=== PATIENT | female | born 1950 | race Caucasian/White ===

== ENCOUNTER → 2018-02-19 01:05 | Outpatient (CLI) | payer MEDICARE, OTHER, SELFPAY ==
--- NOTE | 2018-02-19 11:25 | DI.REPORT_ITS ---
SYMPTOMS/DIAGNOSIS: SCREENING, Z12.31 MAMMOGRAM: Mammograms were interpreted according to the usual protocol including computer analysis with CAD system, tomosynthesis and C view imaging. The breasts are of moderate density with fairly symmetrical distribution of fibroglandular tissue. No dominant mass or clumped microcalcification is identified in either breast. The current examination is compared with previous examinations including June 2012 and allowing for differences in technique there has been no gross interval change in appearance in comparison with the previous studies. CONCLUSION: No specific evidence of malignancy at this time. Routine screening examinations are suggested at yearly intervals in this age group according to the ACS/ACR guidelines. Category I. Breast density Category B. MQSA ASSESSMENT OF FINDINGS: Negative. Category 1. Patient will receive a letter notifying them of these results. BI-RADS category B. There are scattered areas of fibroglandular density.
== END ==
PROVIDERS: PCP Nurse Practitioner; Visit Provider Nurse Practitioner Family
DX: Z12.31 Encounter for screening mammogram for malignant neoplasm of breast (principal)
CPT/HCPCS: 77063; 77067

== ENCOUNTER 2018-07-30 12:37 | Outpatient (REF) | payer MEDICARE, SELFPAY ==
[2018-07-30 22:27] LABS: ALT 45 U/L (12-78); AST 22 U/L (15-37); Albumin 4.1 g/dL (3.4-5.0); Alkaline Phosphatase 79 U/L (46-116); Anion Gap 11.4 mmol/L (3-11); BUN 21 mg/dL (7-18); CO2 25.6 mmol/L (21.0-32.0); CREATININE 0.75 mg/dL (0.55-1.02); Calcium 9.6 mg/dL (8.5-10.1); Chloride 104 mmol/L (98-107); Cholesterol 215 mg/dL (50-200); Glucose 94 mg/dL (70-100); HDL Cholesterol 92 mg/dL (40-60); LDL CHOLESTEROL 112 mg/dL (<100); Potassium 4.5 mmol/L (3.5-5.1); Sodium 141 mmol/L (136-145); Total Protein 7.5 g/dL (6.4-8.2); Triglyceride 66 mg/dL (30-150)
== END 2018-07-30 12:57 ==
LOC: NCHCN 12:37
PROVIDERS: PCP Nurse Practitioner; Visit Provider Family Medicine
DX: R03.0 Elevated blood-pressure reading, without diagnosis of hypertension (principal); Z13.6 Encounter for screening for cardiovascular disorders
CPT/HCPCS: 80053; 80061; 83721

== ENCOUNTER 2019-12-12 12:53 | Emergency (ER) | payer MEDICARE, OTHER, SELFPAY ==
[2019-12-12 12:58] VITALS: BP 169/88; PULSE 80; RESP 16; TEMP 36.6; O2SAT 96
--- NOTE | 2019-12-12 13:05 | ED.GENADUL_ITS ---
Discharge Plan Disposition Patient Disposition: HOME Condition: Good Discharge Details Chief Complaint: Nk/Back Pain Clinical Impression: Contusion Primary Care Provider: Caity Epstein ED Provider: Karen Kelly Home Meds and New Rx's Prescriptions: No Action No Known Home Meds RF: 0 Discharge Instructions Instructions: Contusion in Adults (ED) Additional Instructions: Encourage hydration. Please continue with Tylenol and/or ibuprofen as needed for discomfort. You may use [id number] patches such as Lidoderm patches to help with discomfort. If you develop change in your bowel or bladder habits, fevers or chills, weakness, sensation changes or other new/worsening symptom please seek care urgently once again. Otherwise, please follow-up with primary care in 2 weeks if not improving. Referrals: Caity Epstein [Primary Care Provider] - Discharge Data Discharge Date/Time-TO BE ENTERED AT DEPARTURE: 12/12/19 14:31 Medical Decision Making Patient is a pleasant 69-year-old female presenting today with chief complaint of coccyx and sacral pain. She reports 11 days ago she was helping some to to move a desk. Was walking backwards when she tripped on the steps that is behind her. She reported she did not fall backwards landing directly on her sacrum. She denies any numbness or tingling. No incontinence. No change in bowel or bladder habits. Denies any weakness in her lower extremities. Has not taken anything for her discomfort since the incident. Denies other injury the time of the incident. On exam, patient is resting comfortably. She is full range of motion of her back without discomfort. She has some minor midline tenderness particularly over the low sacrum and coccyx. There is no paresthesias, neuro exam is intact. No evidence of cauda equina. No pelvic instability, abdominal pain. Will give Tylenol, ibuprofen, Lidoderm patch and obtain x-rays of the affected area. FINDINGS: The bony structures are in anatomic alignment. No fracture is present. No radiopaque foreign body is identified. The joint spaces are well maintained. IMPRESSION: No evidence of acute bony abnormality Discussed findings with patient. She reports feeling much improved after Tylenol and ibuprofen and Lidoderm patch. She is able to move and get dressed unassisted. Advised that this is likely contamination. Encourage water intake. Encouraged patient avoid activities that cause increased discomfort. She was given strict return precautions. In particular, we discussed the symptoms of cauda equina and when to seek care urgently once again for this. She will follow-up with primary care in the next 1 to 2 weeks if pain continues. All of her questions or concerns were addressed and she is in agreement this plan. HPI General Mode of arrival: ambulatory . Date/Time Provider Initiated Documentation: 12/12/19 13:05 . Limitations to Documentation: no limitations . Information obtained by: patient and RN notes reviewed . History of Present Illness 69 year old F presents to the emergency department with the chief complaint of Sacral and coccyx discomfort, described as moderate, with intensity rated at 5. Quality is described as aching, and is localized to the back and buttocks. Patient reports no radiation. Patient started ex periencing this day(s) (11) and it has been constant. Immobilization improves symptom(s), Movement worsens symptoms . Patient notes no other symptoms.. Patient did receive the following treatments prior to arrival, NSAID (5 hours prior) Related Data Home Medications Medication Instructions Recorded Confirmed Unknown [No Known Home Meds] 08/14/17 12/12/19 Allergies Allergy/AdvReac Type Severity Reaction Status Date / Time XRAY DYE Allergy Severe VOMITING Uncoded 12/12/19 13:03 General Stated Complaint: Nausea/Vomit/Diar TANI: 3 Review of Systems Constitutional Constitutional: Reports as per HPI, Denies chills, Denies fatigue, Denies fever(s), Denies frequent falls and Denies headache(s) Eyes Eyes: Denies change in vision ENT Ears, Nose, Mouth, and Throat: Denies headache(s) Cardiovascular Cardiovascular: Denies chest pain, Denies dyspnea and Denies dyspnea on exertion Respiratory Respiratory: Denies cough, Denies dyspnea and Denies dyspnea on exertion Gastrointestinal Gastrointestinal: Denies abdominal pain, Denies change in bowel habits and Denies fecal incontinence Genitourinary Genitourinary: Reports as per HPI, Denies urinary incontinence and Denies urinary hesitancy Musculoskeletal Musculoskeletal: Reports as per HPI, Reports back pain, Denies muscle weakness, Denies numbness, Denies radiating pain into limb, Reports stiffness and Denies tingling Integumentary/Breasts Skin/Breast: Reports as per HPI and Denies rash Neurologic Neurologic: Reports as per HPI, Denies frequent falls, Denies headache(s), Denies localized weakness, Denies numbness, Denies radicular pain, Denies sensory deficit, Denies tingling and Denies paresthesias Endocrine Endocrine: Denies fatigue [facility] Surgical History Abdominal hysterectomy (~1992) with bladder repair Cholecyst[place] [facility] [place] Family History Mother Colon cancer at 34 Father Diabetes Sister Heart disease Grandmother Colon cancer MGM Daughter Pancreatitis, chronic Social History Smoking/Tobacco Use Status: Never Alcohol Intake: never Drug use: Never Do you feel safe at home: Yes Do you feel safe in your relationship?: Yes Exam Const General: cooperative, healthy appearing, comfortable, no acute distress, well developed and well groomed Nutritional Appearance: average body habitus and well nourished Orientation: alert and awake Eyes General: appearance normal, both eyes and all related structures Neck Neck: normal visual inspection, full ROM, no lymphadenopathy and no meningeal signs Resp Effort & Inspection: normal respiratory effort and able to speak in complete sentences Auscultation: clear to auscultation bilaterally, no rales, no rhonchi and no wheezes Cardio Rate: regular rate Rhythm: regular rhythm Heart Sounds: S1 normal and S2 normal GI Inspection: normal to inspection Palpation: nontender Back/Spine/Pelvis Thoracic/Lumbar Spine: thoracic and lumbar spine normal to inspection, thoraco- lumbar ROM normal, straight leg raise negative bilaterally, pain with thoraco- lumbar ROM, No paraspinal tenderness, No thoraco-lumbar ROM limited, No thoraco- lumbar spasm and No thoracic spinal tenderness Pelvis: no pain with anterior-posterior compression, no pain with lateral compression, no buttock ecchymosis, no buttock tenderness and no buttock swelling Sacroiliac joints: bilaterally nontender Sacrum: no ecchymosis, no erythema, no swelling and tenderness Coccyx: no swelling and tenderness on direct palpation Skin General skin exam: no rashes or lesions noted Neuro General: patient alert and patient awake Cognition: normal cognition Speech: speech normal Gait: normal gait Motor: muscle tone normal throughout, strength 5/5 throughout, no movement abnormalities noted and no fasciculations Sensory Exam: no sensory deficits noted (no saddle paresthesias) DTR's: Rt Patellar: 2+, Lt Patellar: 2+, Rt Ankle: 2+ and Lt Ankle: 2+ Extrem General: normal to inspection, full ROM, capillary refill normal, no joint enlargement, no pedal edema, no calf tenderness and normal gait Psych Appearance: grossly normal and well kempt Mental Status: mental status grossly normal Speech and Movement: speech and movement normal Course Vital Signs Vital signs: Vital Signs Temperature 36.6 C 12/12/19 12:58 Pulse 80 12/12/19 12:58 Respiratory Rate 16 12/12/19 12:58 Blood Pressure 169/88 H 12/12/19 12:58 Pulse Oximetry 96 12/12/19 12:58 Temperature 36.6 C 12/12/19 12:58 Pulse 80 12/12/19 12:58 Respiratory Rate 16 12/12/19 12:58 Respiratory Effort Non-Labored 12/12/19 13:02 Blood Pressure 169/88 H 12/12/19 12:58 Blood Pressure Position Sitting 12/12/19 12:58 Pulse Oximetry 96 12/12/19 12:58 Oxygen Delivery Method Room Air 12/12/19 12:58 Oxygen Flow Rate 0 12/12/19 12:58 Pain Level 5 12/12/19 13:04
--- NOTE | 2019-12-12 13:15 | DI.RAD_ITS ---
EXAM: XR SACRUM COCCYX CLINICAL HISTORY: fall 11 days ago, coccyx pain. TECHNIQUE: 2D digital imaging was performed. COMPARISON: No exams were available for comparison FINDINGS: BONES: No acute fracture is present. No bony destructive lesion is seen. JOINTS: The SI joints show mild degenerative changes but appear intact. Facet degenerative changes a re also present in the lower lumbar spine. SOFT TISSUE: Normal. IMPRESSION: Unremarkable radiographs of the sacrum and coccyx. DATA REPOSITORY: RADIATION DOSE DELIVERED:
[2019-12-12] MEDS: Acetaminophen 500 MG TAB 1000 MG PO (13:30)
[2019-12-12] MEDS: Lidocaine 5% Patch 1 PATCH TP (13:30)
[2019-12-12] MEDS: Ibuprofen 600 MG TAB PO (13:30)
--- NOTE | 2019-12-12 14:09 | DI.VRAD_ITS ---
PROCEDURE INFORMATION: Exam: XR Sacrum and Coccyx, 2 or More Views Exam date and time: 12/12/2019 1:54 PM Age: 69 years old Clinical indication: Pain in coccyx area; Patient HX: Fall 11 days ago, persistent pain TECHNIQUE: Imaging protocol: XR of the sacrum and coccyx, 2 or more views. COMPARISON: CT ABD PELVIS WITH CONTRAST 08/14/2017 9:32 AM FINDINGS: The bony structures are in anatomic alignment. No fracture is present. No radiopaque foreign body is identified. The joint spaces are well maintained. IMPRESSION: No evidence of acute bony abnormality. Dictated and Authenticated by: Star Hong MD. Ordering:LUCY Jones MD
[2019-12-12 14:30] VITALS: BP 160/88; PULSE 80; RESP 16; TEMP 36.6; O2SAT 96
== END 2019-12-12 14:31 | disposition home or self-care (01) ==
LOC: ER 14:54
PROVIDERS: Emergency Provider Physician Assistant; PCP Nurse Practitioner
DX: S30.0XXA Contusion of lower back and pelvis, initial encounter (principal); W19.XXXA Unspecified fall, initial encounter
CPT/HCPCS: 99283; 72220

== ENCOUNTER 2020-04-25 01:17 | Outpatient (CLI) | payer MEDICARE, OTHER, SELFPAY ==
--- NOTE | 2020-04-25 13:22 | DI.MAMMO_ITS ---
EXAM: MAMMO SCREENING CLINICAL HISTORY: SCREENING,Z12,31 TECHNIQUE: Mammograms were interpreted according to the usual protocol including computer analysis w [employer] CAD system, tomosynthesis and C-view imaging. COMPARISON: FINDINGS: The breasts are of moderate density with fairly symmetrical distribution of fibroglandular tissue. N o dominant mass or clumped microcalcification is identified in either breast. The current examinatio n is compared with previous examination of January 2018 and there is increased prominence of areas of asymmetric density projected in the right breast posteriorly on the MLO view and centrally and latera lly on the CC view, spot compression views of these areas are requested to rule out new right breast mass. No other significant change seen. IMPRESSION: Additional mammographic views of the right breast requested as described above to include CC and MLO spot compression views. Breast ultrasound may be indicated as well depending on the results of the a dditional mammographic views. BI-RADS Category 0 - Assessment Incomplete: Need additional imaging evaluation Breast Density - Category B - Scattered areas of fibroglandular density
== END 2020-04-25 01:37 ==
PROVIDERS: PCP Family Medicine; Visit Provider Family Medicine
DX: Z12.31 Encounter for screening mammogram for malignant neoplasm of breast (principal); R92.8 Other abnormal and inconclusive findings on diagnostic imaging of breast
CPT/HCPCS: 77063; 77067

== ENCOUNTER 2020-04-28 03:42 | Outpatient (CLI) | payer MEDICARE, OTHER, SELFPAY ==
--- NOTE | 2020-04-28 | DI.US_ITS ---
EXAM: MG MAMMO SCREEN CALL BACK UNI CLINICAL HISTORY: F/U MAMMO,INCREASED ASYMMETRIC DENSITY TECHNIQUE: Mammograms were interpreted according to the usual protocol including computer analysis w [employer] CAD system, tomosynthesis and C-view imaging. COMPARISON: FINDINGS: Additional mammographic views of the right breast and right breast ultrasound are interpreted in conj unction. These examinations were obtained to evaluate questionable areas of asymmetric density seen on recent mammogram in the upper outer quadrant of the right breast. Spot compression views fail to show a discrete mass. Breast ultrasound shows couple of tiny cysts in the 10 o'clock position contai donna some debris or proteinaceous material with no internal vascularity and smooth moles, these measu re about 2 millimeters and 4 millimeters in diameter respectively. No suspicious mass identified. IMPRESSION: No specific evidence of malignancy at this time. Follow-up unilateral right breast mammogram recomme nded in 6 months. BI-RADS Category 3 - 6 month - Probably Benign Finding: Recommend follow-up mammography in 6 months Breast Density - Category B - Scattered areas of fibroglandular density
--- NOTE | 2020-04-28 09:40 | DI.MAMMO_ITS ---
EXAM: MG MAMMO SCREEN CALL BACK UNI CLINICAL HISTORY: F/U MAMMO,INCREASED ASYMMETRIC DENSITY TECHNIQUE: Mammograms were interpreted according to the usual protocol including computer analysis w [employer] CAD system, tomosynthesis and C-view imaging. COMPARISON: FINDINGS: Additional mammographic views of the right breast and right breast ultrasound are interpreted in conj unction. These examinations were obtained to evaluate questionable areas of asymmetric density seen on recent mammogram in the upper outer quadrant of the right breast. Spot compression views fail to show a discrete mass. Breast ultrasound shows couple of tiny cysts in the 10 o'clock position contai donna some debris or proteinaceous material with no internal vascularity and smooth moles, these measu re about 2 millimeters and 4 millimeters in diameter respectively. No suspicious mass identified. IMPRESSION: No specific evidence of malignancy at this time. Follow-up unilateral right breast mammogram recomme nded in 6 months. BI-RADS Category 3 - 6 month - Probably Benign Finding: Recommend follow-up mammography in 6 months Breast Density - Category B - Scattered areas of fibroglandular density
== END 2020-04-28 04:02 ==
PROVIDERS: PCP Family Medicine; Visit Provider Family Medicine
DX: R92.8 Other abnormal and inconclusive findings on diagnostic imaging of breast (principal)
CPT/HCPCS: 76642; 77063; 77067

== ENCOUNTER 2020-10-12 01:50 | Outpatient (CLI) | payer MEDICARE, OTHER, SELFPAY ==
--- NOTE | 2020-10-12 | DI.US_ITS ---
EXAM: US BREAST RT COMPLETE CLINICAL HISTORY: F/U ABNL MAMMO, 6 MONTH FOLLOW UP. TECHNIQUE: COMPLETE ULTRASOUND EXAMINATION OF THE RIGHT BREAST WAS PERFORMED INCLUDING ALL 4 QUADRAN TS WELL THE RETROAREOLAR REGION. THE RIGHT AXILLA WAS ALSO SCANNED. COMPARISON: Prior mammograms were reviewed. Prior ultrasound examination March 2020 was also revie wed. FINDINGS: At the 3 o'clock position there are 2 microcysts. One is round and measures 3.5 x 3.0. Millimeters. The other is slightly above long, measuring 7 x 3 millimeters. One of these corresponds to the fin ding on the mammogram at this location. At the 10 o'clock position there is a small benign-appearing lymph node which corresponds to a nodule which is been present since at least 2012 on the mammograms. There are no other focal findings in all 4 quadrants nor in the retroareolar region. No significant ultrasound finding to correspond to area of possible concern described on the prior ma mmogram. Scanning of the axilla reveals small benign-appearing lymph nodes IMPRESSION: Benign right breast ultrasound findings. No solid lesions. Appropriate follow-up is to keep this patient yearly mammogram schedule, this implying the next [facility] mammogram would be in March or April 2021, with earlier imaging if a self detected breast c hanges noted.. BI-RADS Category 2 - Benign Findings Breast Density - Category B - Scattered areas of fibroglandular density Breast density Category C or D implies that the patient has dense breast tissue. Dense breast tissue can make it harder to find cancer on a mammogram. Dense breast tissue is also associated with an incr eased risk of breast cancer. This information about the result of the mammogram report was provided to the patient to raise their awareness. Use this report when you speak with the patient about their risks for breast cancer, which includes their family history. At that time, you may recommend additional screening tests (Ultrasoun d or MRI) as these tests may add significant information. A negative radiographic report should not delay biopsy if a dominant or clinically suspicious mass is present. Up to ten percent of cancers are not identified on mammography. A negative report may reinforce clinical impression. Adenosis and dense breasts may obscure an underlying neoplasm. False positive reports average 6 to 10%. Patient will receive a letter notifying them of these results.
--- NOTE | 2020-10-12 | DI.MAMMO_ITS ---
EXAM: MG MAMMO DIAGNOSTIC UNI-RIGHT CLINICAL HISTORY: DIAGNOSTIC,F/U ABNL MAMMO, 6 MONTH FOLLOW UP. TECHNIQUE: Both CC and MLO views of the right breast were performed using tomosynthesis technique. C AD. COMPARISON: Prior mammograms dating back to 2012, the most recent being March 2020. Prior ultrasou nd March 2020 was reviewed. FINDINGS: There has been no significant change in appearance and distribution of fibroglandular tissue. Small nodular density in the upper outer quadrant is unchanged from 2013 and shown to be benign lymph node on ultrasound performed today following this mammogram. In the medial aspect of the breast there is a well-defined oval noncalcified nodule which may be slig htly increasing in size from prior years. This is shown to be a microcyst on ultrasound today. Previously described finding centrally is less concerning on today's mammogram. Indeed, there are no ultrasound findings to correspond to this on today's complete breast ultrasound. No new malignant-appearing microcalcification groups. No new architectural distortion or skin thicken ing-traction. IMPRESSION: Benign right breast findings. Please also refer to today's breast ultrasound report. Appropriate follow-up is to keep this patient yearly mammogram schedule playing the next bilateral ma mmogram would be in 6 months, with earlier imaging if a self detected breast changes noted.. BI-RADS Category 2 - Benign Findings Breast Density - Category B - Scattered areas of fibroglandular density Breast density Category C or D implies that the patient has dense breast tissue. Dense breast tissue can make it harder to find cancer on a mammogram. Dense breast tissue is also associated with an incr eased risk of breast cancer. This information about the result of the mammogram report was provided to the patient to raise their awareness. Use this report when you speak with the patient about their risks for breast cancer, which includes their family history. At that time, you may recommend additional screening tests (Ultrasoun d or MRI) as these tests may add significant information. A negative radiographic report should not delay biopsy if a dominant or clinically suspicious mass is present. Up to ten percent of cancers are not identified on mammography. A negative report may reinforce clinical impression. Adenosis and dense breasts may obscure an underlying neoplasm. False positive reports average 6 to 10%. Patient will receive a letter notifying them of these results.
== END 2020-10-12 02:10 ==
PROVIDERS: PCP Family Medicine; Visit Provider Family Medicine
DX: Z12.31 Encounter for screening mammogram for malignant neoplasm of breast (principal); R92.8 Other abnormal and inconclusive findings on diagnostic imaging of breast; N60.11 Diffuse cystic mastopathy of right breast; R59.0 Localized enlarged lymph nodes
CPT/HCPCS: 76642; 77061; 77065; G0279

== ENCOUNTER 2020-11-16 12:26 | Outpatient (REF) | payer MEDICARE, OTHER, SELFPAY ==
[2020-11-16 21:11] LABS: ALT 65 U/L (14-59); AST 32 U/L (15-37); Albumin 3.8 g/dL (3.4-5.0); Alkaline Phosphatase 91 U/L (46-116); Anion Gap 8.3 mmol/L (3-11); BUN 15 mg/dL (7-18); Bilirubin, Total 0.9 mg/dL (0.2-1.0); CO2 27.7 mmol/L (21.0-32.0); CREATININE 0.8 mg/dL (0.55-1.02); Calcium 9.2 mg/dL (8.5-10.1); Calculated LDL 82 mg/dL (<100); Chloride 106 mmol/L (98-107); Cholesterol 180 mg/dL (<200); Glucose 99 mg/dL (74-106); HDL Cholesterol 63 mg/dL (40-60); Potassium 4.2 mmol/L (3.5-5.1); Sodium 142 mmol/L (136-145); Total Protein 6.9 g/dL (6.4-8.2); Triglyceride 178 mg/dL (<150)
[2020-11-20 10:19] LABS: Hepatitis C Ab w Rflx HCV PCR Negative (Negative)
== END 2020-11-16 12:27 | disposition home or self-care (01) ==
LOC: NCHCN 12:26
PROVIDERS: PCP Family Medicine; Visit Provider Family Medicine
DX: R03.0 Elevated blood-pressure reading, without diagnosis of hypertension (principal); Z11.59 Encounter for screening for other viral diseases; E78.1 Pure hyperglyceridemia
CPT/HCPCS: 80053; 80061; 86803

== ENCOUNTER 2021-01-29 14:28 | Outpatient (CLI) | payer MEDICARE, OTHER, SELFPAY ==
--- NOTE | 2021-01-29 14:00 | DI.RAD_ITS ---
Exam(s) XR HIP RT COMPLETE AP PELVIS EXAM: XR HIP RT COMPLETE AP PELVIS CLINICAL HISTORY: right hip pain. TECHNIQUE: 2D digital imaging was performed. COMPARISON: No exams were available for comparison FINDINGS: There is no evidence of pelvic nor hip fracture. However, there are moderate osteoarthritic degenera tive changes right hip joint evident. Left hip appears unremarkable. No osseous. Sacroiliac joints appear unremarkable. IMPRESSION: Right hip degenerative changes. No fractures evident. DATA REPOSITORY: RADIATION DOSE DELIVERED:
== END 2021-01-29 14:29 | disposition home or self-care (01) ==
LOC: DIORS 14:28
PROVIDERS: PCP Family Medicine; Referring Provider Family Medicine; Visit Provider Student in an Organized Health Care Education/Training Program
DX: M25.551 Pain in right hip (principal); M16.11 Unilateral primary osteoarthritis, right hip
CPT/HCPCS: 99213; 73502

== ENCOUNTER 2021-04-17 02:29 | Outpatient (CLI) | payer MEDICARE, OTHER, SELFPAY ==
[2021-04-17 19:46] LABS: COVID-19 RT-PCR UVMMC Result Negative (Negative)
== END 2021-04-17 02:30 | disposition home or self-care (01) ==
LOC: LBO 02:29
PROVIDERS: PCP Family Medicine; Visit Provider Nurse Practitioner Family
DX: Z20.822 Contact with and (suspected) exposure to COVID-19 (principal)
CPT/HCPCS: U0003; U0005

== ENCOUNTER → 2021-04-19 09:25 | Outpatient (BNVA) | payer MEDICARE, OTHER, SELFPAY | PROVIDERS: PCP Family Medicine; Referring Provider Family Medicine; Visit Provider Physical Therapy Assistant | DX: Z12.11 Encounter for screening for malignant neoplasm of colon (principal); Z80.41 Family history of malignant neoplasm of ovary ==

== ENCOUNTER 2021-04-27 01:24 | Outpatient (CLI) | payer MEDICARE, SELFPAY ==
[2021-04-27 10:41] LABS: Source Nasal/Nares
[2021-04-27 14:31] LABS: COVID-19 PCR Negative (Negative)
== END 2021-04-27 01:25 | disposition home or self-care (01) ==
LOC: LBO 01:25
PROVIDERS: PCP Family Medicine; Visit Provider Surgery
DX: Z20.822 Contact with and (suspected) exposure to COVID-19 (principal)
CPT/HCPCS: 87635

== ENCOUNTER 2021-04-30 07:09 | Day surgery (SDC) | payer MEDICARE, SELFPAY ==
--- NOTE | 2021-04-29 08:52 | ANES.PREOP_ITS ---
General Info Date of Service Date Performed: 04/30/21 Height: 5 ft 1 in Weight: 64.637 kg Body Mass Index (BMI): 26.9 Surgical Procedure: Operation Date: 04/30/21 08:20 Proposed Procedures Side Surgeon p Colonoscopy Savi Chester MD Meds Allergies and Home Medications Allergies Allergy/AdvReac Type Severity Reaction Status Date / Time XRAY DYE Allergy Severe VOMITING Uncoded 04/30/21 07:25 Home Medication Medication Instructions Recorded clobetasol 0.05 % topical cream 1 applic TOPICAL BID 11/28/20 acetaminophen 325 mg capsule 325 mg PO ONCE PRN 04/19/21 bisacodyl 5 mg tablet,delayed 5 mg PO ONCE #4 tab 04/19/21 release ibuprofen 200 mg tablet 200 mg PO Q6H PRN 04/19/21 polyethylene glycol 3350 17 17 g PO ONCE #238 g 04/19/21 gram/dose oral powder Current Visit Medications: Current Medications Generic Name Dose Route Start Last Admin Trade Name Freq PRN Reason Stop Dose Admin Ringer's Solution 1,000 mls @ 80 mls/hr 04/30/21 06:00 IV 05/27/21 23:59 INFUSION RADHA IV Miscellaneous Supplies 1 each 04/30/21 06:00 Iv Access IV 05/27/21 23:59 DIRECTED RADHA Sodium Chloride 0 ml 04/30/21 06:00 Normal Saline Flush 10 Ml Syr IV 05/27/21 23:59 PRN PRN Sodium Chloride 0 ml 04/30/21 06:00 Normal Saline 10 Ml Vial IJ 05/27/21 23:59 DIRECTED PRN Sterile Water 0 ml 04/30/21 06:00 Water,Injection,Sterile 10 Ml Vial IJ 05/27/21 23:59 DIRECTED PRN PFSH Active Problems Active Problems: Problem Status Onset Code Screening for colon cancer Z12.11 Family history of colon cancer Z80.0 Herpes simplex B00.9 Atopic dermatitis L20.9 Elevated blood pressure reading R03.0 Degenerative joint disease of right hip M16.11 Medical History Medical History Degenerative joint disease of right hip Hepatic cyst History of nephrolithiasis Surgical History Surgical History Abdominal hysterectomy (~1992) with bladder repair Cholecystectomy 06/2017 at [facility] [place] History of ear surgery Hx of shoulder surgery Tobacco Smoking/Tobacco Use Status: Never Alcohol Alcohol Intake: current Alcohol intake frequency: a few times a month Alcohol type: other Substance Use Substance use: Never Substance use type: does not use Vital Signs and Lab Results Vital Signs Most Recent Vital Signs in EMR: Temp Pulse Resp BP Pulse Ox 36.3 C L 74 16 151/88 H 97 04/30/21 07:21 04/30/21 07:21 04/30/21 07:21 04/30/21 07:21 04/30/21 07:21 Lab Results Blood Type / Crossmatch: No Data to Display Complete Blood Count: No Data to Display Complete Metabolic Panel: No Data to Display Liver Function Panel: No Data to Display Coagulation Panel: No Data to Display Cardiac Panel: No Data to Display Arterial Blood Gas: No Data to Display Venous Blood Gas: No Data to Display Pancreas Panel: No Data to Display Thyroid Panel: No Data to Display Infectious Disease: Coronavirus (COVID-19)(PCR) Negative (Negative) 04/27/21 08:49 04/27/21 Coronavirus 2019 Source Nasal/Nares 04/27/21 08:49 04/27/21 Blood Cultures: No Data to Display Toxicology Panel: No Data to Display Anesthesia Assessment and Plan Anesthesia History Personal History: No History of Anesthesia Complications Family History: No Family History of Anesthesia Complications Exercise Tolerance Exercise Tolerance: Metabolic Equivalents>4 Cardiac & Pulmonary Exam Cardiac Exam: Normal S1/S2 Heart Sounds Pulmonary Exam: Clear Bilateral Breath Sounds Airway Exam Known Difficult Airway: No Mallampati Class: 2 Mouth Opening: Normal (> 3cm) Thyromental Distance: Greater than 3 cm Neck Range of Motion: Full ROM Neck Circumference: Normal Teeth Condition: Normal Dentition ASA Classification ASA Score: ASA 2 Emergency Case?: No NPO Status NPO Status: NPO Clears >2 hours, Solids >8 hours Anesthesia Plan Resuscitation Status: Full Code Anesthesia Technique: General Anesthesia Airway Planned: Natural Airway Monitors Used: Standard Monitors Preoperative Comments:: 71 yo female for screening colo. Sig PMHx: hepatic cyst, hysterectomy, cholecystectomy. never smoker, no EtOH.
--- NOTE | 2021-04-30 06:39 | COLE_ITS ---
Colonoscopy Report Date of procedure: 04/30/21 Pre-op diagnosis general: Colon Cancer Screening Post-op diagnosis procedure note: same (and internal hemorrhoids) Procedure: Colonoscopy Surgeon: Savi Chester Anesthesia Type: General:No Airway (Kb Cardoso CRNA) Estimated blood loss (mL): 0 Pathology: none sent Complications: None Disposition: same day Indications: The patient is here for Colonoscopy pre-op. Her last screening was in 2010 and was unremarkable. She denies a family history of colon cancer. She reports her mother had ovarian cancer which spread to her colon. She has not had any bowel habit changes. -Discussed colonoscopy bowel prep as well as the procedure. Discussed possible complications of the procedure to include bleeding, pain, perforation, missed small lesion/polyp, sore throat, aspiration and adverse reaction to the medications. Questions were answered to patient?s satisfaction. No guarantees were implied or given. Prep: Miralax/Dulcolax Procedure Start Time: 08:14 Procedure End Time: 08:34 Retraction Time: 9 minutes Findings: Grade 1 and 2 internal hemorrhoids Procedure Description: After informed consent was obtained the patient was taken to the procedure room and placed in a left decubitous position. Monitors were applied and a time out was done. The patients name, date of , procedure, allergies to medications and metal in their body was reviewed. The patient was then sedated. Once sedated and comfortable a rectal exam was done. External exam was normal. Internal exam revealed a normal sphincter tone and no palpable masses. The scope was then introduced and retro-flexed. Grade 1 and 2 internal hemorrhoids were identified. No polyps or masses were identified on retro- flexion. The scope was then advanced to the cecum without difficulty. The ileocecal vlave and appendiceal orifice were identified. The prep was adequate. The scope was then slowly retracted over 9 minutes back into the rectum. There were no polyps and no diverticulosis noted. The scope was removed and the patient was woken up and taken back to Same day surgery in stable condition. The patient tolerated the procedure well and there were no immediate complications. Follow up: The patient should follow up as needed if they develop changes in bowel habits or other new gastrointestinal complaints.
--- NOTE | 2021-04-30 06:40 | W.PM.DSUDISC ---
Discharge Plan Disposition Patient Disposition: HOME Condition: Good Discharge Details Reason For Visit: Colonoscopy Attending Provider: Savi Chester Primary Care Provider: Ruba Cabrera Home Meds and New Rx's Prescriptions: Continued acetaminophen [Tylenol] 325 mg capsule 325 mg PO ONCE PRNRF: 0 ibuprofen [Advil] 200 mg tablet 200 mg PO Q6H PRNRF: 0 clobetasol 0.05 % cream 1 applic topical BID RF: 0 Discontinued bisacodyl [Dulcolax (bisacodyl)] 5 mg tablet,delayed release (DR/EC) 5 mg PO ONCE Qty: 4 RF: 0 polyethylene glycol 3350 17 gram/dose powder 17 g PO ONCE Qty: 238 RF: 0 Discharge Instructions Instructions: Hemorrhoids (DC) Additional Instructions: Findings: internal hemorrhoids Follow up: as needed Please call if you develop: fevers >101.5 Nausea or Vomiting Abdominal pain that is not transient Rectal bleeding that is more then a tbsp A hard abdomen and inability to pass gas DAY SURGERY UNIT POST ENDOSCOPY INSTRUCTIONS Instructions for everyone who is given Anesthesia: For your safety, please do the following for the next 24 Hours: a. Do not drive or operate dangerous equipment b. Do not drink alcohol beverages or use any recreational drugs for the first 24 hours or while taking pain medications. The medications in your body may have a reaction that can be dangerous. c. Do not make any important decisions or sign any important papers 1. Generally there are no restrictions on your activity after a day or so has gone by, but you may feel a bit fatigued for a few days. 2. After you arrive home you may have a light meal and return to a normal diet as you can tolerate it without feeling sick to your stomach. 3. After surgery, you may feel pain or discomfort. This should be only transient, but if it persists please contact your doctor. 4. If there are any questions regarding the findings of your procedure, please feel free to contact your doctor. 6. If you are unable to contact your doctor with a problem, contact the hospital at [phone]. 7. Continue all your regular medications unless directed otherwise. I understand the above instructions and have no questions. Signature of Patient or Responsible Adult Escort Date/Time Name of Responsible Adult Escort Signature of Nurse Date/Time Activity:: Activity as Tolerated Diet:: high fiber Discharge Orders Discharge Orders: Discharge Order (Routine); Ordered 04/30/21 Ordered By: Savi Chester
[2021-04-30 07:21] VITALS: BP 151/88; PULSE 74; RESP 16; TEMP 36.3; O2SAT 97
[2021-04-30 07:26] VITALS: BMI 26.9
[2021-04-30] MEDS: Lactated Ringers 1,000 ML 80 ML IV (07:41)
[2021-04-30 08:44] VITALS: BP 122/65; PULSE 68; RESP 18; TEMP 36.2; O2SAT 97
--- NOTE | 2021-04-30 08:48 | W.ANESPOSTOP ---
Postoperative Evaluation Date, Time and Location Date Performed: 04/30/21 Time Performed: 08:48 Patient Location: Day Surgery Unit Vital Signs Most Recent Imported Vital Signs: Most Recent Vital Signs Temp Pulse Resp BP Pulse Ox 36.2 C L 68 18 122/65 97 04/30/21 08:44 04/30/21 08:44 04/30/21 08:44 04/30/21 08:44 04/30/21 08:44 Pain Score Most Recent Pain Score: Most Recent Pain Score Pain Level 0 04/30/21 08:44 Assessment Mental Status: Awake (Alert & Oriented to Patient Baseline) Airway and Respiratory Function: Patent airway with normal (patient baseline) respiratory exam Cardiovascular Function: Hemodynamically Stable Hydration Status: Adequately Hydrated Nausea & Vomiting: No Nausea or Vomiting Pain: Pt. Denies Any Pain Peripheral Nerve Block: Patient did not receive a nerve block
[2021-04-30 09:20] VITALS: BP 156/95; PULSE 60; RESP 16; TEMP 36.3; O2SAT 98
== END 2021-04-30 09:53 | disposition home or self-care (01) ==
PROVIDERS: PCP Family Medicine; Visit Provider Surgery
PROC: 0DJD8ZZ Inspection of Lower Intestinal Tract, Via Natural or Artificial Opening Endoscopic (ICD-10-PCS; CPT 45378; principal; 2021-04-30 08:15)
DX: Z12.11 Encounter for screening for malignant neoplasm of colon (principal); K64.8 Other hemorrhoids
CPT/HCPCS: G0121; J2001

== ENCOUNTER 2021-07-13 01:56 | Outpatient (CLI) | payer MEDICARE, SELFPAY ==
--- NOTE | 2021-07-13 08:42 | DI.MAMMO_ITS ---
Exam(s) MAMMO SCREENING EXAM: MAMMO SCREENING CLINICAL HISTORY: SCREENING, Z12.31. TECHNIQUE: Bilateral full field digital CC and MLO mammographic images were obtained with 3D tomosyn thesis and utilizing computer aided detection (CAD). COMPARISON: Prior mammograms dating back to 2012, the most recent being March 2020 and diagnostic right breast mammogram performed September 2020. Recent ultrasound examinations were reviewed FINDINGS: There has been no significant change in the appearance and distribution of the fibroglandular tissue. Scattered benign microcalcifications are again noted in both breasts. There is an unchanged benign-appearing nodule laterally in the left breast, unchanged from 2013 and a small benign-appearing nodule medially in the right breast which is also unchanged from prior studie s. Recently described nodular density posteriorly in the right breast is less evident on the present agata dy. Oval nodular density seen on the 3D MLO view of the right breast located 10 cm from the nipple i s unchanged There is no significant architectural distortion nor skin thickening-retraction. IMPRESSION: Stable benign findings. No radiographic evidence of malignancy. BI-RADS Category 2 - Benign Findings Breast Density - Category B - Scattered areas of fibroglandular density Breast density Category C or D implies that the patient has dense breast tissue. Dense breast tissue can make it harder to find cancer on a mammogram. Dense breast tissue is also associated with an incr eased risk of breast cancer. This information about the result of the mammogram report was provided to the patient to raise their awareness. Use this report when you speak with the patient about their risks for breast cancer, which includes their family history. At that time, you may recommend additional screening tests (Ultrasoun d or MRI) as these tests may add significant information. A negative radiographic report should not delay biopsy if a dominant or clinically suspicious mass is present. Up to ten percent of cancers are not identified on mammography. A negative report may reinforce clinical impression. Adenosis and dense breasts may obscure an underlying neoplasm. False positive reports average 6 to 10%. Patient will receive a letter notifying them of these results.
== END 2021-07-13 02:16 ==
PROVIDERS: PCP Family Medicine; Visit Provider Family Medicine
DX: Z12.31 Encounter for screening mammogram for malignant neoplasm of breast (principal); R91.1 Solitary pulmonary nodule
CPT/HCPCS: 77063; 77067

== ENCOUNTER 2021-11-06 09:10 | Outpatient (REF) | payer MEDICARE, SELFPAY | END 2021-11-06 09:11 | disposition home or self-care (01) | LOC: NCHCN 09:10 | PROVIDERS: PCP Family Medicine; Visit Provider Family Medicine | DX: R30.0 Dysuria (principal) | CPT/HCPCS: 87077; 87086 ==

== ENCOUNTER 2021-12-01 07:34 | Emergency (ER) | payer MEDICARE, SELFPAY ==
[2021-12-01 07:38] VITALS: BP 167/71; PULSE 60; RESP 18; TEMP 36.6; O2SAT 97
--- NOTE | 2021-12-01 08:03 | ED.GENADUL_ITS ---
Discharge Plan Disposition Patient Disposition: HOME Condition: Stable Discharge Details Clinical Impression: Strain of left groin Primary Care Provider: Ruba Cabrera ED Provider: Namrata Valverde Home Meds and New Rx's Prescriptions: Continued acetaminophen [Tylenol] 325 mg capsule 325 mg PO ONCE PRN ibuprofen [Advil] 200 mg tablet 200 mg PO Q6H PRN clobetasol 0.05 % cream 1 applic topical BID meloxicam 7.5 mg tablet 1 tab PO DAILY Label Comments: TAKE ONE TABLET BY MOUTH EVERY DAY WITH FOOD Discharge Instructions Instructions: Groin Strain (ED) Additional Instructions: Your presentation appears consistent likely with a muscle strain in your left groin. Alternate ice and heat to the affected area(s) several times daily for 20 minutes at a time. You can continue to take your meloxicam once daily or hold on your meloxicam and take 600 mg of ibuprofen every 6 hours for the next 2 days. Follow-up with your primary care doctor in 1 week. Return to the emergency department with any worsening or new concerning symptoms. Discharge Data Discharge Physician: Namrata Valverde Medical Decision Making 71-year-old female presents with left hip pain since last night when quickly turning and jumping out of bed when hearing a loud noise. Her blood pressure is hypertensive at 167/71. She otherwise appears nontoxic. Her left hip and groin appears normal to inspection without cellulitis, rash or trauma. She has normal range of motion at the left hip without limitation of range of motion. She has tenderness to palpation within the left groin and left proximal anterior thigh and pain in this location is reproducible with hip flexion against resistance. Neurovascularly intact. Suspect most likely left groin strain. As she denies any direct blunt injury or fall onto her left hip, do not think indication for x-ray and patient is agreeable. She was offered Tylenol or ibuprofen here but declined. She states she started meloxicam for arthritis 2 days ago. She is advised that she can continue her meloxicam daily or hold her meloxicam for the next few days and take 600 mg of ibuprofen every 6 hours for the next 2 days and then resume her meloxicam. She is advised alternate ice and heat. Advised to follow up with the primary care doctor for re-evaluation. Usual and customary return precautions given prior to discharge. Medical Records Medical records reviewed: Yes I reviewed the patient's medical records. HPI General Mode of arrival: ambulatory . Date/Time Provider Initiated Documentation: 12/01/21 07:52 . Limitations to Documentation: no limitations . Information obtained by: patient . HPI Narrative: Patient is a 71-year-old female who presents with left hip pain since last night after her fan fell in her room causing a loud bang which caused her to wake up suddenly from her sleep and jumped out of bed. Patient states she twisted and jumped up quickly causing instant pain within her left hip. She states she did not fall onto her hip or hit her hip against anything. She has not taken any medication for pain. She states the pain hurts mostly in her left groin with walking. She denies any bowel or bladder incontinence, lower back pain, radiation of pain to her leg or leg weakness or numbness. Related Data Home Medications Medication Instructions Recorded Confirmed clobetasol 0.05 % topical cream 1 applic topical BID 11/28/20 12/01/21 acetaminophen 325 mg capsule 325 mg PO ONCE PRN 04/19/21 12/01/21 (Tylenol) ibuprofen 200 mg tablet (Advil) 200 mg PO Q6H PRN 04/19/21 12/01/21 meloxicam 7.5 mg tablet 1 tab PO DAILY 12/01/21 12/01/21 Allergies Allergy/AdvReac Type Severity Reaction Status Date / Time XRAY DYE Allergy Severe VOMITING Uncoded 04/30/21 07:25 General Stated Complaint: Orthopedic TANI: 4 Review of Systems All systems reviewed & are unremarkable except as noted in HPI and below Constitutional Constitutional: Denies chills, Denies excessive sweating, Denies fatigue, Denies fever(s), Denies weakness and Denies weight loss Eyes Eyes: Reports system reviewed and no additional complaints, except as documented and Denies blurry vision ENT Ears, Nose, Mouth, and Throat: Denies vertigo, Denies dizziness, Denies otalgia, Denies nasal congestion, Denies sore throat and Denies throat swelling Cardiovascular Cardiovascular: Denies chest pain, Denies syncope, Denies rapid heart rate and Denies dyspnea Respiratory Respiratory: Denies chest congestion, Denies cough, Denies pain on inspiration and Denies dyspnea Gastrointestinal Gastrointestinal: Denies abdominal pain, Denies diarrhea and Denies vomiting Genitourinary Genitourinary: Denies hematuria, Denies dysuria and Denies flank pain Musculoskeletal Musculoskeletal: Denies back pain and Denies joint swelling Comments: L hip pain Integumentary/Breasts Skin/Breast: Denies lesions and Denies rash Neurologic Neurologic: Denies behavioral changes, Denies confusion, Denies vertigo, Denies dizziness, Denies syncope, Denies localized weakness and Denies weakness Psychiatric Psychiatric: Denies behavioral changes, Denies confusion and Denies depression Endocrine Endocrine: Denies excessive sweating and Denies fatigue Hematologic/Lymphatic Hematologic/Lymphatic: Denies easy bruising and Denies lymphadenopathy Allergic/Immunologic Allergic/Immunologic: Denies throat swelling PFSH All Active Problems (Updated 12/01/21 @ 08:17 by Namrata Valverde DO) Strain of left groin (Acute) Screening for colon cancer (Acute) Family history of colon cancer (Acute) Herpes simplex (Acute) Atopic dermatitis (Acute) Elevated blood pressure reading (Acute) Degenerative joint disease of right hip (Acute) Medical History (Updated 12/01/21 @ 08:17 by Namrata Valverde DO) Hepatic cyst History of nephrolithiasis Surgical History (Updated 06/05/21 @ 13:41 by Sujata Singh) Abdominal hysterectomy (~1992) with bladder repair [place]olecyst[place]/2017 [place] [facility] [place] History of colonoscopy (~04/2021) History of ear surgery Hx of shoulder surgery Family History (Updated 04/19/21 @ 09:55 by PARVEZ Acuña) Mother Ovarian cancer Metastatic, spread to colon Father Diabetes Sister Heart disease Grandmother Colon cancer MGM Daughter Pancreatitis, chronic Social History Smoking/Tobacco Use Status: Never Smoking risk assessment performed?: Yes Alcohol Intake: current Alcohol Intake frequency: holidays/special occasions only Alcohol type: other Drug use: Never Substance use type: does not use Do you feel safe at home: Yes Do you feel safe in your relationship?: Yes Exam Const General: cooperative and healthy appearing Orientation: alert and awake [facility] Head: normal to inspection Ears: hearing grossly normal bilaterally, external ears normal and TM's normal bilaterally General nose exam: external nose normal Face and sinus: normal facial exam Mouth: oral mucosae normal Teeth and gingiva: dentition normal Throat: posterior oropharynx normal Eyes General: appearance normal, both eyes and all related structures Eyelids: eyelids normal Pupils: PERRL EOM: EOM intact bilaterally Neck Neck: normal visual inspection Lymphatic: no lymphadenopathy noted Chest Chest: normal inspection of the chest Resp Effort & Inspection: normal respiratory effort and able to speak in complete sentences Auscultation: clear to auscultation bilaterally Cardio Rate: regular rate Rhythm: regular rhythm GI Inspection: normal to inspection Palpation: soft, not firm, no guarding, no hepatosplenomegaly, no masses and nontender Auscultation: normal bowel sounds Back/Spine/Pelvis Back: no CVA tenderness Thoracic/Lumbar Spine: No paraspinal tenderness and No lumbar spinal tenderness Skin General skin exam: no rashes or lesions noted Neuro General: patient alert and patient awake Cognition: normal cognition Speech: speech normal Gait: normal gait Motor: muscle tone normal throughout Sensory Exam: no sensory deficits noted Extrem General: normal to inspection, full ROM and capillary refill normal Upper/lower leg/hip images: 1. Tenderness to palpation to left anterior groin overlying inguinal ligament and proximal anterior thigh. Pain reproducible with hip flexion against resistance. The area appears normal to inspection without erythema, edema, ec chymosis, rash or lesions. Other: Normal range of motion at left hip without clicking, limitation or pain with internal or external rotation. Bilateral PT/DP pulses intact. Psych Appearance: grossly normal Mental Status: mental status grossly normal Speech and Movement: speech and movement normal Affect: normal affect Thought Process: normal Course Vital Signs Vital signs: Vital Signs Temperature 97.9 F 12/01/21 07:38 Pulse 60 12/01/21 07:38 Respiratory Rate 18 12/01/21 07:38 Blood Pressure 167/71 H 12/01/21 07:38 Pulse Oximetry 97 12/01/21 07:38 Temperature 97.9 F 12/01/21 07:38 Temperature Source Temporal Artery Scan 12/01/21 07:38 Pulse 60 12/01/21 07:38 Respiratory Rate 18 12/01/21 07:38 Respiratory Effort Non-Labored 12/01/21 07:44 Blood Pressure 167/71 H 12/01/21 07:38 Blood Pressure Position Sitting 12/01/21 07:38 Pulse Oximetry 97 12/01/21 07:38 Oxygen Delivery Method Room Air 12/01/21 07:38 Oxygen Flow Rate 0 12/01/21 07:38 PAWSS Have you Been Recently Intoxicated or Drunk Within the Last 30 days?: No Have you Ever Experienced Previous Episodes of Alcohol Withdrawal?: No Have you ever Experienced Withdrawal Seizures?: No Have you ever Experienced Delirium Tremens(DT)s?: No Have you ever undergone Alcohol Rehabilitation Treatment (i.e, inpt ot outpatient treatment programs)?: No Have you ever Experienced Blackouts?: No Have you ever Combined Alcohol with other Downers within the last 90 days?: No Have you ever Combined Alcohol with any other Substance of Abuse during the last 90 days?: No Positive Blood Alcohol level on Presentation? [PCS.BAL]: No Evidence of Increased Autonomic Activity (i.e. HR>120, tremor, sweating, agitation, nausea)?: No Result: 0
== END 2021-12-01 08:24 | disposition home or self-care (01) ==
PROVIDERS: Emergency Provider Physician Assistant; PCP Family Medicine
DX: S39.011A Strain of muscle, fascia and tendon of abdomen, initial encounter (principal); X50.1XXA Overexertion from prolonged static or awkward postures, initial encounter
CPT/HCPCS: 99282

== ENCOUNTER 2022-04-08 15:43 | Outpatient (REF) | payer MEDICARE, SELFPAY ==
[2022-04-08 18:34] LABS: HCT 46.7 % (36.0-46.0); HGB 16.1 g/dL (11.2-15.7); MCH 32.1 pg (27.0-33.0); MCHC 34.5 % (32.0-36.0); MCV 93 fL (80-95); MPV 10.1 fL (8.0-11.0); Platelet Count 299 10^3/uL (130-400); RBC 5.01 10^6/uL (3.93-5.22); RDW 12.5 % (11.7-14.6); RDW-SD 43.3 fL; WBC 9.16 10^3/uL (4.4-10.8)
[2022-04-08 18:37] LABS: BUN 15 mg/dL (7-18); CREATININE 0.8 mg/dL (0.55-1.02); Calcium 9.6 mg/dL (8.5-10.1); Chloride 106 mmol/L (98-107); Estimated GFR 79.71 (mL/min/1.73m2); Glucose 123 mg/dL (74-106); Potassium 3.9 mmol/L (3.5-5.1); Sodium 140 mmol/L (136-145)
== END 2022-04-08 15:44 | disposition home or self-care (01) ==
LOC: NCHCN 15:43
PROVIDERS: PCP Family Medicine; Visit Provider Family Medicine
DX: R03.0 Elevated blood-pressure reading, without diagnosis of hypertension (principal)
CPT/HCPCS: 80048; 85027

== ENCOUNTER 2022-11-24 16:56 | Emergency (ER) | payer MEDICARE, SELFPAY ==
--- NOTE | 2022-11-24 17:00 | DI.RAD_ITS ---
Exam(s) XR HIP RT COMPLETE AP PELVIS EXAM: XR HIP RT COMPLETE AP PELVIS CLINICAL HISTORY: Fall. TECHNIQUE: 2D digital imaging was performed. COMPARISON: CR XR HIP RT COMPLETE AP PELVIS from 01/29/2021 FINDINGS: 3 views No evidence of acute pelvic nor hip fracture. Mild degenerative changes in the right hip noted. Thi s includes some joint space narrowing and marginal osteophytes in the femoral head. No osseous lesio ns. Bone density normal. IMPRESSION: No acute osseous findings. DATA REPOSITORY: RADIATION DOSE DELIVERED:
[2022-11-24 17:03] VITALS: BP 184/84; PULSE 79; RESP 18; TEMP 36.7; O2SAT 96
--- NOTE | 2022-11-24 17:12 | ED.GENADUL_ITS ---
Discharge Plan Disposition Patient Disposition: Home Condition: Stable Discharge Details Clinical Impression: Degenerative joint disease of right hip, Fall Primary Care Provider: Ruba Cabrera ED Provider: Padmini Law Home Meds and New Rx's Prescriptions: No Action acetaminophen [Tylenol] 325 mg capsule 325 mg PO ONCE PRN ibuprofen [Advil] 200 mg tablet 200 mg PO Q6H PRN clobetasol 0.05 % cream 1 applic topical BID lisinopril 10 mg tablet 10 mg PO DAILY Patient Comments: TAKE ONE TABLET BY MOUTH EVERY DAY Discharge Instructions Instructions: Osteoarthritis (ED), Hip Pain (ED) Additional Instructions: Use the crutches as needed for comfort. X-ray shows no acute fracture or broken bones. I do suspect musculoskeletal strain. You also do have some moderate to severe arthritis of your right hip. Please follow-up with orthopedics as needed to discuss your arthritis in your hip and if there is any options. Please take Tylenol or Ibuprofen with food every 4-6 hours as needed for pain and swelling. Alternate ice and heat. Take the muscle relaxers as prescribed. No driving they may make you sleepy. Referrals: Ruba Cabrera [Primary Care Provider] - Return if symptoms worsen Lew Perera MD [ [facility] STAFF PHYSICIAN] - 2 weeks Medical Decision Making 72-year-old female presents to the ER with a chief complaint of right hip pain status post a mechanical fall this morning. Patient states that she tripped while getting out of bed landing on her right side. She reports that she was able to ambulate during the day and had increased activity however she went to the bathroom went to stand up and had severe pain that radiates into her right groin. She reports that she is unable to put any weight onto her right hip without pain. She also encouraged reports pain with extension. Denies buttock pain. She does have a right middle finger in a splint due to a previous laceration repair on . She did not take any Tylenol or ibuprofen prior to arrival. Did not hit her head no loss of consciousness no complaints of neck pain or any other associated symptoms or injuries. She does have a past medical history of hypertension, degenerative joint disease of her right hip, surgical history includes shoulder surgery, cholecystectomy hysterectomy. Does have a history of kidney stones. X-ray hip and pelvis ordered Tylenol and Flexeril. X-ray shows degenerative changes of the right hip no acute fracture or subluxation. Discussed results with patient who verbalized understanding. Was given crutches and crutch training by hotel staff member. Patient was given Flexeril to go. Instructed on home care and given referral for orthopedics to follow-up. Patient has known arthritis to right hip. This text was generated using [employer] system, please disregard any oddities of phrase or misspellings. Medical Records Medical records reviewed: Yes I reviewed the patient's medical records. Imaging Data Radiologic Study: Imaging: X-Ray Radiologist's impression: Views: 2 or 3 views hip with pelvis when performed. COMPARISON: CR XR HIP RT COMPLETE AP PELVIS 01/29/2021 14:09 FINDINGS: Bones/joints: No acute fracture or subluxation. Aczo-tx-ldcxtxkt degenerative changes in the hips. Soft tissues: Unremarkable. IMPRESSION: No acute bony pathology. HPI General Mode of arrival: wheelchair . Date/Time Provider Initiated Documentation: 11/24/22 17:00 . Limitations to Documentation: no limitations . Information obtained by: patient, RN notes reviewed and old records reviewed . HPI Narrative: 72-year-old female presents to the ER with a chief complaint of right hip pain status post a mechanical fall this morning. Patient states that she tripped while getting out of bed landing on her right side. She reports that she was able to ambulate during the day and had increased activity however she went to the bathroom went to stand up and had severe pain that radiates into her right groin. She reports that she is unable to put any weight onto her right hip without pain. She also encouraged reports pain with extension. Denies buttock pain. She does have a right middle finger in a splint due to a previous laceration repair on . She did not take any Tylenol or ibuprofen prior to arrival. Did not hit her head no loss of consciousness no complaints of neck pain or any other associated symptoms or injuries. She does have a past medical history of hypertension, degenerative joint disease of her right hip, surgical history includes shoulder surgery, cholecystectomy hysterectomy. Does have a history of kidney stones. Related Data Home Medications Medication Instructions Recorded Confirmed clobetasol 0.05 % topical cream 1 applic topical BID 11/28/20 11/24/22 acetaminophen 325 mg capsule 325 mg PO ONCE PRN 04/19/21 11/24/22 (Tylenol) ibuprofen 200 mg tablet (Advil) 200 mg PO Q6H PRN 04/19/21 11/24/22 lisinopril 10 mg tablet 10 mg PO DAILY 11/24/22 11/24/22 Allergies Allergy/AdvReac Type Severity Reaction Status Date / Time XRAY DYE Allergy Severe VOMITING Uncoded 06/03/22 09:23 General Stated Complaint: Fall/Non TraumaCriteria TANI: 3 Review of Systems All systems reviewed & are unremarkable except as noted in HPI and below Musculoskeletal Musculoskeletal: Reports as per HPI, Reports abnormal gait, Reports arthralgias and Reports stiffness Neurologic Neurologic: Reports abnormal gait PFSH All Active Problems (Updated 11/24/22 @ 18:11 by Padmini Law NP) Fall (Acute) Foot pain (Acute) Achilles bursitis of both lower extremities (Acute) Screening for colon cancer (Acute) Family history of colon cancer (Acute) Herpes simplex (Acute) Atopic dermatitis (Acute) Elevated blood pressure reading (Acute) Degenerative joint disease of right hip (Acute) Medical History Hepatic cyst History of nephrolithiasis Surgical History Abdominal hysterectomy (~1992) with bladder repair Cholecystectomy 06/2017 at [facility] History of colonoscopy (~04/2021) History of ear surgery Hx of shoulder surgery Family History Mother Ovarian cancer Metastatic, spread to colon Father Diabetes Sister Heart disease Grandmother Colon cancer MGM Daughter Pancreatitis, chronic Social History Smoking/Tobacco Use Status: Never Smoking risk assessment performed?: Yes Alcohol Intake: current Alcohol Intake frequency: holidays/special occasions only Alcohol type: other Drug use: Never Substance use type: does not use Do you feel safe at home: Yes Do you feel safe in your relationship?: Yes Exam Narrative Exam Narrative: General: Well Developed, Awake and Alert, conversant. Skin: Warm and Dry HEENT: Head: No palpable deformities, Normocephalic Eyes: Pupils PERRLA, EOM's intact. No periorbital eccymosis or step off Ears: Canal patent. Tympanic membranes are clear . No silva's sign, no hemptympanum. Nose/Face: Atraumatic. Facial bones nontender to palpation and stable with manipulation. Mouth/Throat: No intraoral trauma. Teeth and mandible are intact. Neck: No midline tenderness, no step off, no deformity to palpation of C-spine. Trachea midline. Chest: No surface trauma. Nontender without crepitus or deformity. Lungs clear to ausculatation bilaterally. Heart: RRR, no rubs, murmurs or gallop. Abdomen: No abrasions, ecchymosis, or surface trauma. Nondistended. Nontender to palpation no guarding, rebound, or rigidity. Pelvis: Nontender to palpation and stable to compression. Femoral pulses strong and equal Extremities: no surface trauma. Sensation intact. Peripheral pulses intact and equal. Neuro: ANO x4, GCS 15, cranial nerves II through XII intact. Motor and sensory exam nonfocal. Reflexes are symmetric. Course Vital Signs Vital signs: Vital Signs Temperature 36.7 C 11/24/22 17:03 Pulse 79 11/24/22 17:03 Respiratory Rate 18 11/24/22 17:03 Blood Pressure 184/84 H 11/24/22 17:03 Pulse Oximetry 96 11/24/22 17:03 Temperature 36.7 C 11/24/22 17:03 Temperature Source Temporal Artery Scan 11/24/22 17:03 Pulse 79 11/24/22 17:03 Respiratory Rate 18 11/24/22 17:03 Respiratory Effort Normal 11/24/22 17:09 Blood Pressure 184/84 H 11/24/22 17:03 Blood Pressure Position Supine 11/24/22 17:03 Pulse Oximetry 96 11/24/22 17:03 Pain Level 3 11/24/22 17:09
[2022-11-24] MEDS: Acetaminophen 325 MG TAB 650 MG PO (17:16)
[2022-11-24] MEDS: Cyclobenzaprine 10 MG TAB PO (17:16)
--- NOTE | 2022-11-24 17:41 | DI.VRAD_ITS ---
PROCEDURE INFORMATION: Exam: XR Right Hip Exam date and time: 11/24/2022 17:28 Age: 72 years old Clinical indication: Injury or trauma; Fall; Blunt trauma (contusions or hematomas); Right; Hip TECHNIQUE: Imaging protocol: Radiologic exam of the right hip. Views: 2 or 3 views hip with pelvis when performed. COMPARISON: CR XR HIP RT COMPLETE AP PELVIS 01/29/2021 14:09 FINDINGS: Bones/joints: No acute fracture or subluxation. Vlys-ly-nmyjjkgy degenerative changes in the hips. Soft tissues: Unremarkable. IMPRESSION: No acute bony pathology. Dictated and Authenticated by: Kathy Townsend MD. Ordering:GERARDO Washington MD
[2022-11-24 18:19] VITALS: PULSE 78; RESP 16; O2SAT 98
== END 2022-11-24 18:20 | disposition home or self-care (01) ==
PROVIDERS: Emergency Provider Registered Nurse Emergency; PCP Family Medicine
DX: M16.11 Unilateral primary osteoarthritis, right hip (principal)
CPT/HCPCS: 99283; 73502

== ENCOUNTER 2022-12-06 00:14 | Outpatient (CLI) | payer MEDICARE, SELFPAY ==
--- NOTE | 2022-12-06 15:15 | DI.MAMMO_ITS ---
Exam(s) MAMMO SCREENING EXAM: MAMMO SCREENING CLINICAL HISTORY: SCREENING, Z12.31 TECHNIQUE: Bilateral full field digital CC and MLO mammographic images were obtained with 3D tomosyn thesis and utilizing computer aided detection (CAD). COMPARISON: Available for comparison. FINDINGS: Masses/Architectural Distortion: There are bilateral breast nodules present. The largest is in the m edial right breast. These appears stable. No suspicious nodules are seen. No area of architectural distortion is identified. Microcalcifications: No suspicious pleomorphic-type are seen. Skin Thickening/Nipple Retraction: None. IMPRESSION: 1. No significant interval change with no specific features of malignancy noted. 2. Unless there is more urgent need, screening mammography is recommended, as per [place] guidelines. BI-RADS Category 2 - Benign Findings Breast Density - Category B - Scattered areas of fibroglandular density Breast density category C or D implies that the patient has dense breast tissue. Dense breast tissue is very common and is not abnormal but dense breast tissue can make it harder to find cancer on a ma mmogram. Also, dense breast tissue may increase their breast cancer risk. This information about the result of the mammogram report was provided to the patient to raise their awareness. Use this report when you speak with the patient about their risks for breast cancer, which includes their family hist ory. At that time, you may recommend for more screening tests (Ultrasound or MRI) as they might be us eful based on their risk. A negative radiographic report should not delay biopsy if a dominant or clinically suspicious mass is present. Up to ten percent of cancers are not identified on mammography. A negative report may reinforce clinical impression. Adenosis and dense breasts may obscure an underlying neoplasm. False positive reports average 6 to 10%. Patient will receive a letter notifying them of these results.
== END 2022-12-06 00:34 ==
LOC: DI 00:14
PROVIDERS: PCP Family Medicine; Visit Provider Family Medicine
DX: Z12.31 Encounter for screening mammogram for malignant neoplasm of breast (principal)
CPT/HCPCS: 77063; 77067

== ENCOUNTER → 2023-01-20 13:15 | Outpatient (BNVA) | payer MEDICARE, SELFPAY | PROVIDERS: PCP Family Medicine; Referring Provider Family Medicine; Visit Provider Student in an Organized Health Care Education/Training Program | DX: M16.11 Unilateral primary osteoarthritis, right hip (principal); W19.XXXD Unspecified fall, subsequent encounter | CPT/HCPCS: 99213 ==

== ENCOUNTER → 2023-11-17 01:12 | Outpatient (CLI) | payer MEDICARE, SELFPAY ==
--- NOTE | 2023-11-17 | DI.NM_ITS ---
APPROVED REPORT Exam: Exercise Treadmill Patient Location: Out-Patient Room/Bed: Stress Nurse: Dejuan Gaspar RN Ordering Provider:TENISHA HUNTER, Contact Number: [phone] BMI: 27.39 Baseline Rhythm: Sinus Rhythm Indications: Chest Pain, Medical History Medical History: HTN Cardiac Medications: Lisinopril Allergies: No known drug allergies Cardiac Risk Factors: HTN Pretest Chest Pain Characteristics: No chest pain Exercise History: Indeterminate Lung Sounds: Clear to auscultation Heart Sounds: Regular Stress Test Details Test: Exercise stress testing was performed using a Tyler protocol. Rest Stress HR Resting HR Supine: 73 bpm Max Heart Rate (APMHR): 149.641289 bpm Resting HR Standin bpm Target HR (85% APMHR): 126.193771 bpm Max HR Achieved: 145 bpm % of APMHR: 97.32 Recovery HR: 90 bpm HR response to stress: Normal HR response to stress BP Resting BP Supine: 152/96 mmHg Resting BP Standin/100 mmHg Max BP: 162/90 mmHg Recovery BP: 138/88 mmHg BP response to stress: Normal blood pressure response to stress. ECG Resting ECG: Sinus Rhythm Ectopy: none Stress ECG: Sinus Tachycardia ST Change: No significant ST segment changes noted Arrhythmia: None Recovery ECG: Sinus Rhythm Recovery ST Change: No significant ST segment changes noted Recovery Arrhythmia: None Clinical Reason for Termination: Fatigue, Target HR Achieved Stress Symptoms: General Fatigue Exercise duration: 4 min59 sec Highest Stage Reached: Stage 2: 2.5 mph at 12% grade. Exercise capacity: 7.03 METs Angina Score: None Mckenna Treadmill Score: 4.6 Rate Pressure Product: [id number] Stress ECG Conclusion 1. Resting electrocardiogram was normal 2. Patient exercised on the Tyler protocol completed a workload of 7.03 METS 3. Normal heart rate and blood pressure response to exercise. Patient achieved 97% of predicted hear t rate for age 4. There was no electrocardiographic evidence of myocardial ischemia 5. See MPI report Mckenna Treadmill Score is 4.6 which is Moderate risk. Stress Test Summary STAGE Time (mins) Speed (mph) Grade (%) HR BP SpO2 SYMPTOMS METS Supine 73 152/96 95 Standing 79 148/100 1 3 1.7 10 120 150/92 4.5 1 min recovery 126 160/80 96 3 min recovery 95 162/90 97 6 min recovery 90 138/88 96 MPI Conclusion Myocardial perfusion is normal. There is no ischemia or evidence of prior infarction Ejection fraction is 87% with normal wall motion Radiologist Interpretation Radiologist agrees with Bottle Inspector's Interpretation. Radiologist Interpretation by: Pancho Mcdaniel MD Interpretation Date/Time: 11/17/2023 17:51:29
--- NOTE | 2023-11-17 08:47 | DI.RAD_ITS ---
Exam(s) XR CHEST 2V PA LATERAL EXAM: XR CHEST 2V PA LATERAL CLINICAL HISTORY: R07.9 chest pain. TECHNIQUE: 2D digital imaging was performed. COMPARISON: No exams were available for comparison FINDINGS: 2 views: Heart size is normal. The mediastinum is not widened. Lungs are clear. No infiltrates nor pleural effusions. Tenting of the right hemidiaphragm noted. Also noted is a biceps tenodesis site in the right shoulde r-proximal right humeral diaphysis. IMPRESSION: No acute pulmonary findings. DATA REPOSITORY: RADIATION DOSE DELIVERED:
== END ==
PROVIDERS: PCP Family Medicine; Visit Provider Family Medicine
DX: R07.9 Chest pain, unspecified (principal)
CPT/HCPCS: 78452; 93016; 93018; 71046; 93017

== ENCOUNTER → 2023-12-25 00:58 | Outpatient (CLI) | payer MEDICARE, SELFPAY ==
--- NOTE | 2023-12-25 | DI.RAD_ITS ---
Exam(s) XR THORACIC SPINE COMPLETE EXAM: XR THORACIC SPINE COMPLETE CLINICAL HISTORY: THORACIC BACK PAIIN,M54.6. TECHNIQUE: 2D digital imaging was performed of the thoracic spine. Three views were obtained. AP, swimmer's and lateral views were obtained. COMPARISON: CR XR CHEST 2V PA LATERAL from 11/17/2023 FINDINGS: BONES: There is no fracture or destructive lesion. Mild degenerative changes are seen in the thoracic spine characterized by mild joint space narrowing and endplate osteophytes. DISKS:Alignment is within normal limits. Mild disc space narrowing is seen in the thoracic spine. SOFT TISSUE: Visualized lungs are clear. IMPRESSION: Mild degenerative changes of the thoracic spine. DATA REPOSITORY: RADIATION DOSE DELIVERED:
== END ==
PROVIDERS: PCP Family Medicine; Visit Provider Family Medicine
DX: M54.6 Pain in thoracic spine (principal)
CPT/HCPCS: 72072

== ENCOUNTER 2024-08-17 21:09 | Outpatient (REF) | payer MEDICARE, SELFPAY | END 2024-08-17 21:10 | disposition home or self-care (01) | LOC: NCHCN 21:09 | PROVIDERS: PCP Family Medicine; Visit Provider Family Medicine | DX: N89.8 Other specified noninflammatory disorders of vagina (principal) | CPT/HCPCS: 87480; 87510; 87660 ==

== ENCOUNTER → 2025-05-24 01:39 | Outpatient (CLI) | payer MEDICARE, SELFPAY ==
--- NOTE | 2025-05-24 | DI.MAMMO_ITS ---
Exam(s) MAMMO SCREENING EXAM: MAMMO SCREENING CLINICAL HISTORY: SCREENING, Z12.31 TECHNIQUE: Bilateral full field digital CC and MLO mammographic images were obtained with 3D tomosynthesis and utilizing computer aided detection (CAD). COMPARISON: Comparison is made with prior examinations. FINDINGS: Masses/Architectural Distortion: No suspicious masses or areas of architectural distortion are present. There has been interval increase in size in the nodule in the lower inner quadrant of the right breast which now measures 1.2 cm compared to 9 mm on the prior examination. Microcalcifications: No suspicious pleomorphic-type are seen. Skin Thickening/Nipple Retraction: None. IMPRESSION: 1. Interval increase in size of a right breast nodule in the lower inner quadrant. 2. Spot compression view and right breast ultrasound is requested for further characterization. BI-RADS Category 0 - Incomplete: Need additional imaging evaluation Breast Density - Category B - There are scattered areas of fibroglandular density. Breast density Category C or D implies that the patient has dense breast tissue. Dense breast tissue can make it harder to find cancer on a mammogram. Dense breast tissue is also associated with an increased risk of breast cancer. This information about the result of the mammogram report was provided to the patient to raise their awareness. Use this report when you speak with the patient about their risks for breast cancer, which includes their family history. At that time, you may recommend additional screening tests (Ultrasound or MRI) as these tests may add significant information. A negative radiographic report should not delay biopsy if a dominant or clinically suspicious mass is present. Up to ten percent of cancers are not identified on mammography. A negative report may reinforce clinical impression. Adenosis and dense breasts may obscure an underlying neoplasm. False positive reports average 6 to 10%. Patient will receive a letter notifying them of these results.
== END ==
PROVIDERS: PCP Family Medicine; Visit Provider Family Medicine
DX: Z12.31 Encounter for screening mammogram for malignant neoplasm of breast (principal); N63.13 Unspecified lump in the right breast, lower outer quadrant
CPT/HCPCS: 77063; 77067

== ENCOUNTER → 2025-06-01 01:17 | Outpatient (CLI) | payer MEDICARE, SELFPAY ==
--- NOTE | 2025-06-01 13:25 | DI.US_ITS ---
Exam(s) MG MAMMO SCREEN CALL BACK UNI US BREAST RT LIMITED EXAM: MG MAMMO SCREEN CALL BACK UNI and U/S breast RT limited CLINICAL HISTORY: SIZE INCREASE RT BREAST NODULE LOWER INNER QUAD R92.8 ABNL MAMMO. TECHNIQUE: Craniocaudal and mediolateral oblique Full Field Digital Mammography views of the right breast with Computer Aided Diagnosis followed by Tomosynthesis and limited right breast ultrasound. COMPARISON: Comparison is made with prior examinations. FINDINGS: Mammography/Tomosynthesis: Masses/Architectural Distortion: There is again seen a well-circumscribed nodule in the medial right breast. There are no areas of architectural distortion. Microcalcifictions: No suspicious pleomorphic-type are seen. Skin Thickening/Nipple Retraction: None. Limited right breast US: The medial half of the right breast was evaluated sonographically. Echotexture: Normal appearance of the glandular tissue. Shadowing: No suspicious foci. Cyst: There is a simple cyst measuring 1 cm at the 3 o'clock position of the right breast 7 cm from the nipple. This would correspond to the mammographic abnormality. Solid lesions: None seen. Ductal dilation: None. IMPRESSION: 1. No evidence of malignancy is noted. 2. Unless there is more urgent need, follow-up screening mammography is recommended, as per [employer] guidelines. 3. The findings were discussed with the patient on the date of the examination. BI-RADS Category 2 - Benign Findings Breast Density - Category B - There are scattered areas of fibroglandular density. Breast density Category C or D implies that the patient has dense breast tissue. Dense breast tissue can make it harder to find cancer on a mammogram. Dense breast tissue is also associated with an increased risk of breast cancer. This information about the result of the mammogram report was provided to the patient to raise their awareness. Use this report when you speak with the patient about their risks for breast cancer, which includes their family history. At that time, you may recommend additional screening tests (Ultrasound or MRI) as these tests may add significant information. A negative radiographic report should not delay biopsy if a dominant or clinically suspicious mass is present. Up to ten percent of cancers are not identified on mammography. A negative report may reinforce clinical impression. Adenosis and dense breasts may obscure an underlying neoplasm. False positive reports average 6 to 10%. Patient will receive a letter notifying them of these results.
== END ==
LOC: DI 01:17
PROVIDERS: PCP Family Medicine; Visit Provider Family Medicine
DX: Z12.31 Encounter for screening mammogram for malignant neoplasm of breast (principal); R92.8 Other abnormal and inconclusive findings on diagnostic imaging of breast
CPT/HCPCS: 76642; 77063; 77067